=== PATIENT | female | born 1950 | race Caucasian/White ===

== ENCOUNTER 2022-11-11 14:09 | Emergency (ER) | payer MEDICARE, OTHER ==
[~2022-11-11] VITALS: Ht 170.2 cm; Wt 99.8 kg
[2022-11-11] MEDS ORDERED: HYDR-894 PO (14:35)
[2022-11-11] MEDS ORDERED: FURO20TA4 PO (14:35)
[2022-11-11] MEDS ORDERED: LOSA50TA39 PO (14:35)
[2022-11-11] MEDS ORDERED: METO-357 PO (14:35)
[2022-11-11] MEDS ORDERED: PROCHLORPERAZINE EDISYLATE 10 MG/2 ML VIAL ONE (14:42)
[2022-11-11] MEDS ORDERED: diphenhydrAMINE 50 MG/1 ML VIAL ONE (14:42)
[2022-11-11] MEDS ORDERED: KETOROLAC TROMETHAMINE 15 MG INJ ONE ×2 (14:43→16:48)
[2022-11-11] MEDS ORDERED: diphenhydrAMINE 50 MG/1 ML VIAL IV ONE (14:45)
[2022-11-11] MEDS ORDERED: IV NORMAL SALINE 1000 ML BAG IV ONE (14:45)
[2022-11-11] MEDS ORDERED: KETOROLAC TROMETHAMINE 15 MG INJ IVP ONE ×2 (14:45→16:45)
[2022-11-11] MEDS ORDERED: PROCHLORPERAZINE EDISYLATE 10 MG/2 ML VIAL IV ONE (14:45)
--- NOTE | 2022-11-11 16:02 | NUR ---
Pt feeling much better -- left side of head now 5/10, right side 0/10, both down from 10+/10.
[2022-11-11] MEDS ORDERED: SUMA50TA17 PO (16:17)
[2022-11-11] MEDS ORDERED: SUMATRIPTAN SUCCINATE 50 MG TABLET PO ONE (16:45)
[2022-11-11] MEDS ORDERED: SUMATRIPTAN SUCCINATE 50 MG TABLET ONE (16:48)
--- NOTE | 2022-11-11 17:08 | NUR ---
Removed IV intact, site okay, bandaged. Gave pt and son RX and d/c instructions, pt verbalized understanding.
== END 2022-11-11 17:16 | disposition home or self-care (01) ==
LOC: ER 14:09
DX: R51.9 Headache, unspecified (principal); I10 Essential (primary) hypertension; Z88.8 Allergy status to other drugs, medicaments and biological substances; Z88.5 Allergy status to narcotic agent; Z79.899 Other long term (current) drug therapy
CPT/HCPCS: 99284; 96374; 96375; 96361; 96376; J1200; J1885 ×2; J0780; J7040; A4663

== ENCOUNTER 2022-12-09 22:05 | Emergency (ER) | payer MEDICARE, OTHER ==
[~2022-12-09] VITALS: Ht 170.2 cm; Wt 97.5 kg
[~2022-12-09 22:05] MED LIST: FURO20TA4 PO; HYDR-894 PO; LOSA50TA39 PO; METO-357 PO; SUMA50TA17 PO
--- NOTE | 2022-12-09 22:19 | NUR ---
DR Angeles at bedside MSE in progress
[2022-12-09] MEDS ORDERED: KETOROLAC TROMETHAMINE 15 MG INJ ONE (22:25)
[2022-12-09] MEDS ORDERED: PROCHLORPERAZINE EDISYLATE 10 MG/2 ML VIAL ONE (22:25)
[2022-12-09] MEDS ORDERED: diphenhydrAMINE 50 MG/1 ML VIAL ONE (22:25)
[2022-12-09] MEDS ORDERED: KETOROLAC TROMETHAMINE 15 MG INJ IVP ONE (22:30)
[2022-12-09] MEDS ORDERED: diphenhydrAMINE 50 MG/1 ML VIAL IV ONE (22:30)
[2022-12-09] MEDS ORDERED: PROCHLORPERAZINE EDISYLATE 10 MG/2 ML VIAL IV ONE (22:30)
[2022-12-09] MEDS ORDERED: IV NORMAL SALINE 500 ML BAG IV ONE (22:30)
[2022-12-09 22:43] LABS: HEMATOCRIT 42.1 % (31.2-41.9); MEAN CORPUSCULAR HEMOGLOBIN 27.7 uug (24.7-32.8); MEAN CORPUSCULAR VOLUME 83.4 fL (75.5-95.3); PLATELET COUNT (AUTO) 183 K/uL (179-408)
[2022-12-09 22:59] LABS: CREATININE 0.7 mg/dL (0.6-1.3); POTASSIUM 3.5 mmol/L (3.5-5.1)
--- NOTE | 2022-12-09 23:38 | NUR ---
Patient discharged to home in stable condition. Written and verbal after care instructions given. Patient verbalizes understanding of instructions. Stressed follow up or return to ER for worsening s/s. Patient is a/ox4, NAD noted, patient ambulated with steady gait. accompanied by her
[2022-12-09 23:39] VITALS: BP 134/77
== END 2022-12-09 23:39 | disposition home or self-care (01) ==
LOC: ER 22:05
DX: R51.9 Headache, unspecified (principal); Z87.891 Personal history of nicotine dependence; Z88.5 Allergy status to narcotic agent; Z88.8 Allergy status to other drugs, medicaments and biological substances; Z79.899 Other long term (current) drug therapy
CPT/HCPCS: 99285; 96374; 70450; 96375; 96361; 80048; 85025; 36415; J1200; J1885; J0780; J7040; A4663